=== PATIENT | male | born 1940 | race Caucasian/White ===

== ENCOUNTER 2024-05-16 22:20 | Observation (INO) | payer BC, MEDICARE ==
[2024-05-16 22:55] LABS: Bacteria/HPF None Seen HPF (None Seen); Bilirubin Negative (Negative); Blood, Urine Negative (Negative); CAUTI Indications for Culture Dysuria,urgency,freq; Clarity Clear (Clear); Glucose, Urine (Dipstick) Normal (Negative); Ketone, Urine Trace mg/dL (Negative); Leukocyte Negative Leu/uL (Negative); Nitrite Negative (Negative); Protein, Urine (Dipstick) Negative (Neg-Trace); RBC/HPF 0-3 HPF (0-3); Specific Gravity, Urine 1.004 (1.002-1.036); Squamous Epithelial None Seen HPF (0-3); Urobilinogen Normal mg/dL (Less than 2); WBC/HPF None Seen HPF (0-3)
[2024-05-16 23:13] LABS: Urine Culture Reflex No No
[2024-05-16] MEDS ORDERED: LORazepam 2 MG/ML SYR.(CARPUJECT) ONE (23:45)
[2024-05-17 00:44] LABS: #Basophils 0.09 10x3/uL (0.0-0.2); %Basophils 1.6 % (0.0-1.0); %Eosinophils 5.1 % (0.0-10.0); %Lymphocytes 22.7 % (21.0-51.0); %Monocytes 10.1 % (0.0-10.0); Hematocrit 37.8 % (42.0-52.0); Hemoglobin 13.4 g/dL (14.0-18.0); Mean Corpuscular HGB CONC 35.4 g/dL (32.0-36.0); Mean Corpuscular Hemoglobin 31.2 pg (27.0-31.0); Mean Corpuscular Volume 87.9 fL (78.0-98.0); Mean Platelet Volume 8.9 fL (7.4-10.4); Platelet Count 259 10x3/uL (130-400); RBC Distribution Width 12.7 % (11.5-14.5)
[2024-05-17 01:07] LABS: ALT (SGPT) 24 U/L (8-55); AST (SGOT) 24 U/L (5-34); Albumin 4.1 g/dL (3.4-4.8); Alkaline Phosphatase 77 U/L (40-110); Anion Gap 16 mmol/L (10-20); BUN (Urea Nitrogen) 6 mg/dL (8.4-25.7); Bilirubin, Total 2.2 mg/dL (0.2-1.2); Calc. Creatinine Clearance 0 mL/min (70-130); Calcium 9.3 mg/dL (7.8-10.44); Carbon Dioxide 20 mmol/L (23-31); Chloride 99 mmol/L (98-107); Estimated GFR 90; Globulin 2.5 g/dL (2.4-3.5); Glucose 94 mg/dL (83-110); Potassium 4.2 mmol/L (3.5-5.1); Protein, Total 6.6 g/dL (5.8-8.1); Sodium 131 mmol/L (136-145)
[2024-05-17 01:10] LABS: Troponin I Less than 0.010 ng/mL (< 0.028)
[2024-05-17] MEDS ORDERED: Ondansetron ODT 4 MG TAB PO PRN (08:44)
[2024-05-17] MEDS ORDERED: Ondansetron PF 4 MG/2 ML Vial IVP PRN (08:44)
[2024-05-17] MEDS ORDERED: Acetaminophen 325 MG TAB PO PRN (08:44)
[2024-05-17] MEDS ORDERED: Acetaminophen 650 MG Suppository PR PRN (08:44)
[2024-05-17] MEDS ORDERED: Diazepam 2 MG TAB ONE (09:37)
[2024-05-17] MEDS: Diazepam 2 MG TAB PO SCH (09:40)
[2024-05-17] MEDS ORDERED: Tamsulosin HCl 0.4 MG CAP ONE (11:46)
[2024-05-17] MEDS: Finasteride 5 MG TAB PO SCH (12:14)
[2024-05-17] MEDS: NIFEdipine XL 30 MG ER.TAB PO SCH (12:14)
[2024-05-17] MEDS: Tamsulosin HCl 0.4 MG CAP PO SCH (12:16)
[2024-05-17 13:56] VITALS: BMI 27.3
[2024-05-17] MEDS ORDERED: Diazepam 5 MG TAB ONE (14:06)
[2024-05-17] MEDS: Diazepam 5 MG TAB PO SCH ×2 (14:08→20:51)
[2024-05-17] MEDS: Melatonin 3 MG TAB PO SCH (20:51)
[2024-05-18 04:46] LABS: #Basophils 0.08 10x3/uL (0.0-0.2); %Basophils 1.3 % (0.0-1.0); %Eosinophils 6.5 % (0.0-10.0); %Lymphocytes 23.4 % (21.0-51.0); %Monocytes 10.5 % (0.0-10.0); %Neutrophils 58.1 % (42.0-75.0); Hematocrit 36.1 % (42.0-52.0); Mean Corpuscular Hemoglobin 31.1 pg (27.0-31.0); Mean Corpuscular Volume 86.4 fL (78.0-98.0); Mean Platelet Volume 8.9 fL (7.4-10.4); Platelet Count 273 10x3/uL (130-400); RBC Distribution Width 12.7 % (11.5-14.5); Red Blood Cell (RBC) Count 4.18 mill/uL (4.70-6.10)
[2024-05-18 05:38] LABS: Anion Gap 11 mmol/L (10-20); BUN (Urea Nitrogen) 6 mg/dL (8.4-25.7); Calc. Creatinine Clearance 103 mL/min (70-130); Calcium 9.2 mg/dL (7.8-10.44); Carbon Dioxide 21 mmol/L (23-31); Chloride 100 mmol/L (98-107); Estimated GFR 92; Glucose 81 mg/dL (83-110); Potassium 4.1 mmol/L (3.5-5.1); Sodium 128 mmol/L (136-145)
[2024-05-18] MEDS ORDERED: TADALAFIL 5 MG PO SCH (09:00)
[2024-05-18] MEDS ORDERED: Non-Formulary Item 1 EACH (Tadalafil [Tadalafil] 5 MG Tablet) PO SCH (09:00)
[2024-05-18] MEDS ORDERED: Non-Formulary Item 1 EACH (Omeprazole [Omeprazole] 20 MG Capsule.Dr) PO SCH (09:00)
[2024-05-18] MEDS: NIFEdipine XL 30 MG ER.TAB PO SCH (09:21)
[2024-05-18] MEDS: Losartan 25 MG TAB PO SCH (09:21)
[2024-05-18] MEDS: Atorvastatin Calcium 40 MG TAB PO SCH (09:21)
[2024-05-18] MEDS: Finasteride 5 MG TAB PO SCH (09:21)
[2024-05-18] MEDS: Tamsulosin HCl 0.4 MG CAP PO SCH (09:21)
[2024-05-18] MEDS: Pantoprazole DR 40 MG TAB PO SCH (09:21)
[2024-05-18] MEDS: Hydrochlorothiazide 25 MG TAB PO SCH (09:21)
[2024-05-18 12:15] VITALS: BP 155/79; TEMP 98
== END 2024-05-18 12:15 | disposition home or self-care (01) ==
LOC: ERS 22:20 → ERHOLD 05-17 04:26 → 2NO 05-17 04:26
PROVIDERS: ADMIT Student in an Organized Health Care Education/Training Program; ATTEND Internal Medicine
DX: R25.1 Tremor, unspecified (principal); F41.9 Anxiety disorder, unspecified; I10 Essential (primary) hypertension; E78.5 Hyperlipidemia, unspecified; N40.0 Benign prostatic hyperplasia without lower urinary tract symptoms; J44.9 Chronic obstructive pulmonary disease, unspecified; F13.239 Sedative, hypnotic or anxiolytic dependence with withdrawal, unspecified; Z79.899 Other long term (current) drug therapy
CPT/HCPCS: 70450; 71045; 80048; 80053; 81001; 83880; 84484; 85025 ×2; 93005; 96374; 99285; G0378 ×3; J2060; 36415